=== PATIENT | male | born 1995 | race African-American/Black ===

== ENCOUNTER 2019-07-19 16:36 | Emergency (ER) | payer OTHER, SELFPAY ==
--- NOTE | 2019-07-19 17:23 | RAD ---
EXAM: LEFT HAND THREE VIEWS: 07/19/19 HISTORY: Minimal deformity of the third metacarpal evidence for a healed fracture. 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 There is ir regularity through the distal phalanx of the index finger evidence for a fracture. IMPRESSION: Nondisplaced fracture through the index finger distal phalanx. 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 Deformity of the third metacarpal evidence for old fracture. POS: [facility]
== END 2019-07-19 17:25 | disposition home or self-care (01) ==
LOC: MADERS 16:36
DX: S62.661A Nondisplaced fracture of distal phalanx of left index finger, initial encounter for closed fracture (principal); W22.8XXA Striking against or struck by other objects, initial encounter
CPT/HCPCS: 99283